=== PATIENT | male | born 1985 | race Caucasian/White ===

== ENCOUNTER → 2021-05-06 08:37 | Outpatient (CLI) | payer OTHER, SELFPAY ==
--- NOTE | 2021-05-06 08:45 | XR_ITS ---
FINAL REPORT CLINICAL HISTORY: Bilateral knee pain, no injury FINDINGS: RIGHT KNEE: 4 views of the right knee obtained. There is no acute fracture or dislocation. The joint spaces are intact.. There is a small joint effusion. IMPRESSION: Small joint effusion without acute bony abnormality. Reviewed, Interpreted and Dictated by Darnell Dangelo III, MD Transcribed by Ladi Hall Authenticated by Darnell Dangelo III, MD on 05/06/2021 09:42:51 AM [facility]
--- NOTE | 2021-05-06 08:45 | XR_ITS ---
FINAL REPORT CLINICAL HISTORY: knee pain, no injury FINDINGS: LEFT KNEE: 4 views of the left knee obtained. There is no acute fracture or dislocation. The joint spaces are intact.. There is a small joint effusion. IMPRESSION: Small joint effusion without acute bony abnormality. Reviewed, Interpreted and Dictated by Darnell Dangelo III, MD Transcribed by Ladi Hall Authenticated by Darnell Dangelo III, MD on 05/06/2021 09:42:58 AM [facility]
== END ==
LOC: RAD 08:42
PROVIDERS: PCP Emergency Medicine; Visit Provider Orthopaedic Surgery
DX: M25.562 Pain in left knee (principal); M25.561 Pain in right knee
CPT/HCPCS: 73564

== ENCOUNTER → 2021-06-05 14:02 | Outpatient (CLI) | payer OTHER, SELFPAY ==
[2021-06-05 18:10] LABS: Adenovirus,PCR Not Detected (NotDetected); Bordetella Pertussis Not Detected (NotDetected); Chlamydophila Pneumoniae, PCR Not Detected (NotDetected); Coronavirus 19, PCR Not Detected (NotDetected); Coronavirus 229E Not Detected (NotDetected); Coronavirus NL63 Not Detected (NotDetected); Coronavirus OC43 Not Detected (NotDetected); Coronovirus HKU1,PCR Not Detected (NotDetected); Human Metapneumovirus Not Detected (NotDetected); Influenza A, PCR Not Detected (NotDetected); Influenza AH1, 2009 Not Detected (NotDetected); Influenza AH1, PCR Not Detected (NotDetected); Influenza AH3,PCR Not Detected (NotDetected); Influenza B, PCR Not Detected (NotDetected); Mycoplasma Pneumoniae, PCR Not Detected (NotDetected); Parainfluenza 1, PCR Not Detected (NotDetected); Parainfluenza 2, PCR Not Detected (NotDetected); Parainfluenza 3, PCR Not Detected (NotDetected); Parainfluenza 4, PCR Not Detected (NotDetected); Respiratory Syncytial Virus Not Detected (NotDetected); Rhinovirus/Enterovirus Not Detected (NotDetected)
== END ==
LOC: LAB.DROPOF 06-06 14:03
PROVIDERS: Visit Provider Nurse Practitioner Family
DX: R09.89 Other specified symptoms and signs involving the circulatory and respiratory systems (principal); R50.9 Fever, unspecified; R53.83 Other fatigue
CPT/HCPCS: 87581; 87632; 87798; C9803; U0003; U0005

== ENCOUNTER → 2021-07-30 15:41 | Outpatient (CLI) | payer OTHER, SELFPAY ==
[2021-07-30 14:04] LABS: Basophils # 0.2 K/mm3 (0-0.2); Basophils % 2.3 % (0.1-2.0); Eosinophils # 0.5 K/mm3 (0.0-0.4); Eosinophils % 7.8 % (0.1-12.0); Hematocrit 51.4 % (42.0-52.0); Hemoglobin 16.9 g/dL (14.1-18.0); Lymphocytes # 2.3 K/mm3 (0.7-4.5); Mean Corpuscular HGB Conc 32.9 g/dL (31.8-35.4); Mean Corpuscular Hemoglobin 33.7 pg (27.0-31.2); Mean Corpuscular Volume 102.6 fl (80-94); Mean Platelet Volume 8.8 fl (7.4-10.4); Monocytes # 0.4 K/mm3 (0.1-1.0); Monocytes % 6.2 % (1.7-9.3); Neutrophils # 3.3 K/mm3 (1.8-7.8); Neutrophils % 49.7 % (37.0-80.0); Platelet Count 222 K/mm3 (142-424); Red Blood Count 5.01 M/mm3 (4.60-6.20); Red Cell Distribution Width 13.1 % (11.5-17.5); White Blood Count 6.7 K/mm3 (4.8-10.8)
[2021-07-30 15:37] LABS: Alanine Aminotransferase 27 U/L (12-78); Albumin Level 4.2 g/dl (3.5-5.0); Albumin/Globulin Ratio 1.7 (1.1-1.8); Alkaline Phosphatase 66 U/L (38-126); Anion Gap 12.6 mEq/L (5-15); Aspartate Amino Transferase 36 U/L (17-59); Blood Urea Nitrogen 8 mg/dl (9-20); Calcium 9.2 mg/dl (8.4-10.2); Carbon Dioxide 27 mmol/L (22.0-30.0); Chloride 106 mmol/L (98-107); Chol/HDL Ratio 4.7 (1-3.5); Cholesterol 160 mg/dl (140-200); Estimated Glomerular Filt Rate 110 ml/min (>60); GFR (African American) 133 ML/MIN (>60); Globulin 2.5 g/dL (1.3-3.2); Glucose 99 mg/dl (74-100); HDL Cholesterol 34 mg/dl (40-60); Potassium 4.6 mmoL/L (3.5-5.1); Sodium 141 mmol/L (136-145); Total Protein,Serum 6.7 g/dl (6.3-8.2); Triglycerides 145 mg/dl (30-150); VLDL Cholesterol 29 mg/dL (0-40)
[2021-07-30 15:38] LABS: Bilirubin,Total < 0.1 mg/dl (0.2-1.3)
[2021-07-30 15:47] LABS: 25-OH Vitamin D, Total 33.3 ng/mL (30-100)
[2021-07-30 15:52] LABS: T4 (Thyroxine) 6.4 ug/dl (5.53-11.0)
[2021-07-30 15:55] LABS: Direct LDL Cholesterol 90.39 mg/dL (100-129)
[2021-07-30 16:06] LABS: Thyroid Stimulating Hormone 1.14 uIU/mL (0.465-4.68)
[2021-08-08 17:22] LABS: Testosterone, Total, LC/MS 510.4 ng/dL (264.0-916.0)
== END ==
LOC: LAB.DROPOF 15:41
PROVIDERS: PCP Nurse Practitioner Family; Visit Provider Nurse Practitioner Family
DX: R53.83 Other fatigue (principal)
CPT/HCPCS: 80053; 80061; 82306; 84403; 84436; 84443; 85025

== ENCOUNTER 2022-09-19 08:14 | Emergency (ER) | payer SELFPAY ==
[2022-09-19 08:25] VITALS: BP 131/79; PULSE 89; RESP 20; TEMP 37; O2SAT 99; BMI 27.6
--- NOTE | 2022-09-19 08:48 | EXP.UTC ---
Discharge Plan Disposition Patient Disposition: Home, Self-Care Condition: Good Prescriptions Prescriptions: New fluticasone propionate [fluticasone propionate] 50 mcg/actuation spray,suspension 1 spray intranasal DAILY Qty: 9.9 0RF prednisone [prednisone] 20 mg tablet 20 mg PO BID Qty: 10 0RF Rx Instructions: start tomorrow No Action escitalopram oxalate [Lexapro] 10 mg tablet 10 mg PO DAILY Qty: 30 2RF hydroxyzine pamoate [Vistaril] 25 mg capsule 25 mg PO TID PRN (Reason: itching) Qty: 60 1RF azithromycin [Zithromax] 500 mg tablet 1,000 mg PO ONCE Qty: 2 0RF Referrals Follow up/Referrals: Efrain Holder APRN [Primary Care Provider] - See instructions Activity Restrictions/Add. Instructions Additional Instructions/Restrictions: No sign of a bacterial infection. Likely viral. Viruses can take 7-14 days to run their course. Nasal saline and bulb syringe or nose Yanet to remove nasal drainage to help with nasal congestion. Hard to eat, drink, sleep with nasal congestion so important to keep this cleaned out. Monitor temp. Tylenol or Motrin as needed for pain or fever Encourage fluids, water, Gatorade, Powerade, Pedialyte if /toddler/child Warm salt water gargles Warm fluids Sore throat lozenges Sleep elevated Humidifier/vaporizer Follow-up immediately for new or worsening symptoms or no noticeable improvement over the next 48-72 hours. Clinical Impressions Clinical Impression: Upper respiratory infection Qualifiers: URI type: unspecified URI Qualified Code(s): J06.9 - Acute upper respiratory infection, unspecified Instructions Patient Instructions: DI for Viral Upper Respiratory Infection -- Adult Discharge ED Provider: David ([facility] [place] General Stated complaint: Cough congestion drainage nose bleeding Mode of Arrival: Ambulatory Source of Information: Patient Limitations: No Limitations Time Seen by Provider: 09/19/22 08:48 Description of Symptoms (Recalled from Triage Doc. by RN): PATIENT C/O COUGH, CONGESTION, AND RUNNY NOSE THAT STARTED WEDNESDAY AND AN INTERMITTEN NOSE BLEED THAT STARTED YESTERDAY HEENT Symptoms (Recalled from RN notes): Yes Resp Symptoms (Recalled from RN notes): Yes Skin Symptoms (Recalled from RN notes): No MS Symptoms (Recalled from RN notes): No Functional Status (Recalled from RN notes): WNL History of Present Illness Provider Complaint: 36 yr old male presents for runny nose, sinus pressure,sinus tenderness, cough and nose bleeding that comes and goes Related Data Previous Rx's Medication Instructions Recorded escitalopram oxalate 10 mg tablet 10 mg PO DAILY #30 tabs 08/11/21 (Lexapro) hydroxyzine pamoate 25 mg capsule 25 mg PO TID PRN itching #60 caps 08/11/21 (Vistaril) azithromycin 500 mg tablet 1,000 mg PO ONCE #2 tabs 11/10/21 (Zithromax) fluticasone propionate 50 1 spray intranasal DAILY #9.9 mL 09/19/22 mcg/actuation nasal spray,suspension prednisone 20 mg tablet 20 mg PO BID #10 tabs 09/19/22 Allergies Allergy/AdvReac Type Severity Reaction Status Date / Time No Known Allergies Allergy Unverified 07/30/21 08:53 Worker's Comp Is this a Worker's Comp case?: No [facility] Disclaimer: The information contained in this section may have been updated after the patient was seen, as this information can be updated by other users. 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
[2022-09-19 09:10] VITALS: BP 131/79; PULSE 89; RESP 20; TEMP 37; O2SAT 99
== END 2022-09-19 09:18 | disposition home or self-care (01) ==
PROVIDERS: Emergency Provider Nurse Practitioner Family; PCP Nurse Practitioner Family
DX: J06.9 Acute upper respiratory infection, unspecified (principal); F17.200 Nicotine dependence, unspecified, uncomplicated
CPT/HCPCS: 96372; 99204; 99212; G0463

== ENCOUNTER 2025-02-01 11:57 | Day surgery (SDC) | payer OTHER, SELFPAY ==
[2025-01-24 11:56] VITALS: BMI 32.1
--- NOTE | 2025-01-28 11:40 | EXP.HP ---
History of Present Illness *Admission Date: 02/01/25 *History of present illness: Mr. Mendoza is a 39-year-old gentleman who is here for diagnostic EGD. He has had chronic GERD and reports 10 to 12 years of daily heartburn and reflux. This is often worsened at nighttime. He has tried bhnh-mjc-yaoadfq generic antacids (Tums or Rolaids). He has been on omeprazole for gxpl-jxr-akhbfyu capsules daily which helps some. The patient does report a lot of belching, bloating and gassiness. He does drink a lot of carbonated beverages with soda and beer. The patient reports never having a prior upper endoscopy. The examination is deemed medically necessary for diagnostic EGD. The patient has been seen, interviewed and examined prior to the procedure by both myself and the anesthesia provider. [facility] Disclaimer: The information contained in this section may have been updated after the patient was seen, as this information can be updated by other users. Medical History GERD (gastroesophageal reflux disease) Surgical History Hx of wisdom tooth extraction Family History Mother Diabetes Father Diabetes Social History (Updated 02/01/25 @ 13:02 by Darwin Hopkins CRNA) Smoking Status: Former smoker alcohol intake: never substance use type: denies use current occupational status: employed Travel in the last 8 weeks?: None Have you lived/traveled outside [place] in past 30 days?: No Contact w/someone who lives/traveled outside US past 30 days?: No Exposure to someone with infectious disease in past 14 days?: No Do you have a fever (greater than 100.4 F or 38 C)?: No Have you tested positive for COVID-19?: No Exposed to someone with COVID-19 in past 14 days?: No Do you have a sore throat?: No Do you have a cough?: No Do you have any weakness?: No Are you experiencing any nausea/vomitting?: No Do you have any diarrhea?: No Are you experiencing any unusual bleeding?: No Do you have any muscle aches/pain?: No Do you have any abdominal pain?: No Are you experiencing loss of taste or smell?: No Other Medical History Have you received the Pneumonia Vaccine: No Review of Systems Review of Systems Review of systems (narrative): Negative *Cardiovascular Comments: Negative *Gastrointestinal Comments: Negative *Genitourinary Comments: Negative *Musculoskeletal Comments: Negative *Neurologic Comments: Negative Meds Home Medications and Allergies Home Medications ?Medication ?Instructions ?Recorded ?Confirmed ?Type pantoprazole 40 mg tablet,delayed 40 mg PO DAILY #30 tabs 11/29/24 02/01/25 Rx release New Prescriptions to Start Prescriptions: Allergies Allergy/AdvReac Type Severity Reaction Status Date / Time No Known Allergies Allergy Verified 11/28/24 10:01 Exam *Routine HEENT Exam Head: Present normocephalic Eye: Present EOMI and PERRL ENT: Present mucous membranes moist *Routine Neck Exam Neck: Present supple *Routine Respiratory Exam Respiratory: Present CTA bilaterally *Routine Cardiovascular Exam Cardiovascular: Present RRR *Routine Abdominal Exam Abdominal: Present soft and normoactive bowel sounds; Absent tenderness *Routine Rectal Exam Rectal:: deferred *Routine Genitalia Exam Genitalia:: deferred *Routine Extremities Exam Extremities: Absent cyanosis, clubbing or edema *Routine Skin Exam Skin: Present warm; Absent rash *Routine Neurological Exam Neurological: Present alert and oriented X3 Assessment and Plan *Assessment and plan (1) Heartburn: Status: Acute Category: Medical Code(s): R12 - Heartburn (2) Belching: Status: Acute Category: Medical Code(s): R14.2 - Eructation (3) GERD (gastroesophageal reflux disease): Status: Acute Category: Medical Code(s): K21.9 - Gastro-esophageal reflux disease without esophagitis Plan A/P: 1. Heartburn, reflux and belching is the preprocedural diagnosis. The patient will be anesthetized/sedated using MAC sedation. The patient has been seen and examined. Cardiac and lung assessment prior to the examination is stable. Proceed with planned diagnostic EGD.
--- NOTE | 2025-02-01 06:54 | HMH.PROCNOTE ---
[facility] Procedure Note Date: 02/01/25 Time: 14:02 Procedure Note:: Upper Endoscopy Procedure Report: Esophagogastroduodenoscopy with cold biopsies Endoscopost: Luke Durán II, MD Referring Physician: Jose Brandon DO Date of Procedure: February 01, 2025 Equipment: Olympus GIF-1100 standard upper endoscope Sedation: MAC sedation Indications: Mr. Mendoza is a 39-year-old gentleman who is here for diagnostic EGD. He has had chronic GERD and reports 10 to 12 years of daily heartburn and reflux. This is often worsened at nighttime. He has tried zvpe-eof-gypkakc generic antacids (Tums or Rolaids). He had been on omeprazole for gymp-hgh-uuwtvtr capsules daily which helped some. The patient was having a lot of belching, bloating and gassiness. He was drinking a lot of carbonated beverages with soda and beer. The patient was switched to pantoprazole and cut out the carbonated beverages. He is markedly improved with resolution of his heartburn/reflux. He has had improvement of his bloating and belching. The patient reports never having a prior upper endoscopy. The examination is deemed medically necessary for diagnostic EGD. Procedure: Prior to the procedure, a history and physical exam was performed, and patient's medications and allergies were reviewed. The risks, benefits and alternatives of the sedation and procedure were discussed with the patient. All questions were answered and informed consent was obtained. The patient was brought to the procedure room. Patient identification and proposed procedure were verified by the physician and the nurse. The patient was placed in a left lateral decubitus position and the scope was passed under direct vision. Throughout the procedure, the patient's blood pressure, pulse, and oxygen saturations were monitored continuously. The upper GI endoscopy was accomplished without difficulty. The patient tolerated the procedure well. Findings: The scope was passed directly into the upper esophagus and advanced to the third portion of the duodenum. The post bulbar duodenum and duodenal bulb were normal with normal mucosa and conniventes. 2 cold biopsies were taken from the second portion of the duodenum for the disaccharidase assay. The scope was withdrawn through a normal duodenal bulb and pylorus into the stomach. There was some mild bile reflux with very minimal linear antral gastropathy. There was some mild chronic gastritis of the proximal stomach with mosaic/reticular pattern suggestive of H. pylori and biopsies were taken along the lesser curvature to rule out H. pylori. Upon retroflexion there was a 2 cm hiatal hernia. The scope was then withdrawn into the esophagus. There was a single tongue of salmon-colored mucosa that extended 2 cm into the esophagus from the GE junction. Directed biopsies were taken to rule out short segment Dawson's esophagus. There was no evidence of reflux esophagitis and the remainder of the esophageal mucosa was normal. Impression: 1. Single tongue of salmon-colored mucosa in distal esophagus (tongue of Dawson's esophagus)?biopsy taken 2. Small 2 cm hiatal hernia 3. Mild chronic gastritis 4. Mild bile reflux Plan: I will follow-up the biopsies to rule out Dawson's but also to rule out H. pylori. The patient is markedly clinically improved with pantoprazole and avoidance of carbonated beverages. I will discuss the findings with the patient and family.
[2025-02-01 12:38] VITALS: BP 147/114; PULSE 79; RESP 16; TEMP 36.4; O2SAT 96; BMI 32.1
[2025-02-01] MEDS: LACTATED RINGERS 1000ML 1,000 ML 50 ML IV (12:50)
--- NOTE | 2025-02-01 13:01 | EXP.ANES.CKL ---
[facility] Disclaimer: The information contained in this section may have been updated after the patient was seen, as this information can be updated by other users. Medical History GERD (gastroesophageal reflux disease) Surgical History Hx of wisdom tooth extraction Family History Mother Diabetes Father Diabetes Social History (Updated 01/24/25 @ 11:55 by Valeria Clemons) Smoking Status: Former smoker alcohol intake: never substance use type: denies use current occupational status: employed Travel in the last 8 weeks?: None [facility] Anesthesia Checklist Patient Identification Patient Identification: Arm Band and Family Structural Data Admitted From: Home Planned Operative Procedure/s: EGD Consent for Planned Operative Procedure(s) Verified: Yes Verified Documents: Surgical Consent and History and Physical NPO Status Verified Time NPO: 00:00 Additional verifications Patient : No Anesthesia Reactions: No Hx Blood Transfusions: No Blood Transfusion Reaction: No Cephalosporin Allergy: No Airway Assessment Mallampati Score:: Class II C-Spine Mobility Assessed: Yes TMJ Mobility Assessed: Yes Dentition: Good Dentition Neurological Assessment Level of Consciousness: Awake, Alert, Appropriate and Follows Commands Hx Seizures: No Numbness or tingling in extremities: No Anesthesia Plan ASA Class: I Anesthesia Type: MAC (Acid reflux.)
[2025-02-01 14:04] VITALS: BP 114/78; PULSE 72; RESP 20; TEMP 36.2; O2SAT 96
[2025-02-01 14:14] VITALS: BP 112/78; PULSE 70; O2SAT 95
[2025-02-01 14:24] VITALS: BP 115/75; PULSE 67; O2SAT 95
[2025-02-01 14:34] VITALS: BP 122/88; PULSE 77; O2SAT 99
[2025-02-05 19:10] LABS: Interpretation Notes (.); Lactase 19.24 (>/= 14.0); Maltase 244.08 (>/= 110.0); Palatinase 19.24 (>/= 8.5); Reference Notes (.); Sucrase 71.16 (>/= 25.0)
== END 2025-02-01 14:34 | disposition home or self-care (01) ==
PROVIDERS: PCP Internal Medicine; Visit Provider Internal Medicine Gastroenterology
PROC: 0DJ08ZZ Inspection of Upper Intestinal Tract, Via Natural or Artificial Opening Endoscopic (ICD-10-PCS; CPT 43239; principal; 2025-02-01 14:00)
DX: K22.70 Barrett's esophagus without dysplasia (principal); K44.9 Diaphragmatic hernia without obstruction or gangrene; K29.50 Unspecified chronic gastritis without bleeding; K21.9 Gastro-esophageal reflux disease without esophagitis; R14.2 Eructation; Z79.899 Other long term (current) drug therapy; Z87.891 Personal history of nicotine dependence
CPT/HCPCS: 43239; 82657; J2003; J2704; J7120